=== PATIENT | male | born 1990 | race American Indian/Alaskan Native ===

== ENCOUNTER 2021-01-13 12:04 | Emergency (ER) | payer MEDICAID ==
[2021-01-13] MEDS ORDERED: Potassium Chloride 10 MEQ in Premix Bag 1 BAG IV ONE (12:48)
--- NOTE | 2021-01-13 12:49 | EDM.PDOC ---
<Hammad Manrique Chrissy - Last Filed: 01/13/21 12:57> ED HPI GENERAL MEDICAL PROBLEM - General Chief Complaint: General Stated Complaint: FROM CLINIC Time Seen by Provider: 01/13/21 12:20 Source of Information: Reports: Patient, Family History Limitations: Reports: No Limitations - History of Present Illness INITIAL COMMENTS - FREE TEXT/NARRATIVE: 30 y/o M c/o abd pn, fluid retention and fatigue x 1 month. Pt was seen at [facility] this morning and was sent to the ER. Pt was told his liver is "shot" and that he needs to go to the ER. Pt states about a month ago he developed abd pain and fluid buildup in his abd. Pt states his abd pn is sharp in nature worse on the R, constant and transitions to a numbness sensation towards the lower part of the abd. Pts fatigue has been present for about a month and does improve with rest. Pt also reports occasional CP L chest cramping in nature lasting a few minutes and nonradiating. CP occurs at rest or with activity and subsides without intervention. Reports occasional dark red stools for the last month. Hx of heavy alcohol use and quit drinking 3 weeks ago. Denies fever, chills, db, extremity pn, hemorrhoids, trauma. CBC results from clinic WBC 24.16 Red blood cell 3.53 Hemoglobin 12.4 Hematocrit 33.9 MCV 96 MCH 35.1 MCHC 36.6 RDW 65.5 Platelets 180 MPV 9.7 Neutrophils 91.4 Lymphocytes 3.3 mono 2.9 eos 0.6 Baso 0.1 imm grans 1.70 Neutros Abs 22.08 Lymph Abs 0.79 CMP BUN 31 NA 128 K 2.6 Chloride 91 CO2 22.4 Gluc 121 Creatinine 3.7 Ca 7.5 Anion Gap 14.6 Albumin 1.5 Alk Phos 357 Ast 248 ALT 68 Bilirubin 30.9 Protein tot 6.6 GFR 19 - Related Data Allergies Allergy/AdvReac Type Severity Reaction Status Date / Time No Known Allergies Allergy Verified 04/20/19 00:50 Home Meds: Home Meds . [No Known Home Meds] 04/20/19 [History] ED ROS GENERAL - Review of Systems Review Of Systems: Comprehensive ROS is negative, except as noted in HPI. ED EXAM, GENERAL - Physical Exam Exam: See Below Exam Limited By: No Limitations General Appearance: Alert, Anxious (scleral icterus) Throat/Mouth: Normal Inspection, Normal Lips, Normal Oropharynx, Normal Voice, No Airway Compromise Head: Atraumatic, Normocephalic Neck: Supple, Non-Tender Respiratory/Chest: No Respiratory Distress, Lungs Clear, Normal Breath Sounds Cardiovascular: Normal Peripheral Pulses, Regular Rate, Rhythm, No JVD GI/Abdominal: Soft, Tender, Other (tender throught with appreciable fluid wave, distended abd) (Male) Exam: Deferred Rectal (Males) Exam: Other (pt refused rectal exam) Back Exam: Normal Inspection, Full Range of Motion, Other (No CVA tenderness) Extremities: Normal Inspection, Other (except for diffuse jaundice) Neurological: Alert, Oriented Psychiatric: Anxious Skin Exam: Warm, Dry, Intact, Other (diffuse jaundice) Departure - Departure Disposition: DC/Tfer to [facility] 02 Clinical Impression: Jaundice, Increased ammonia level Ascites Qualifiers: Ascites type: due to alcoholic cirrhosis Qualified Code(s): K70.31 - Alcoholic cirrhosis of liver with ascites Acute renal failure Qualifiers: Acute renal failure type: unspecified Qualified Code(s): N17.9 - Acute kidney failure, unspecified Liver failure Qualifiers: Liver failure chronicity: acute Hepatic coma status: without hepatic coma Qualified Code(s): K72.00 - Acute and subacute hepatic failure without coma - Discharge Information Forms: Interfacility Transfer EMTALA Care Plan Goals: Discussed the patient's history, examination, lab and CT results with Dr. Healy ([facility]). Dr. Healy accepted the patient for continued mary luation and further management as an inpatient at [facility]. The patient will be transported by [facility]. <Sukhdev Dee - Last Filed: 01/13/21 18:27> #1 Interpretation EKG Date: 01/13/21 Time: 12:42 Rhythm: NSR Rate (Beats/Min): 82 [place]: Normal P-Wave: Present QRS: Normal ST-T: Normal QT: Normal Comparison: NA - No Prior EKG Course - Vital Signs Last Recorded V/S: Last Vital Signs Temp 97.6 F 01/13/21 17:52 Pulse 86 01/13/21 17:52 Resp 18 01/13/21 17:52 BP 127/55 L 01/13/21 17:52 Pulse Ox 96 01/13/21 17:52 - Orders/Labs/Meds Orders: Active Orders 24 hr Category Date Time Status CULTURE BLOOD [BC] Stat Lab 01/13/21 13:35 Received Labs: Laboratory Tests 01/13/21 01/13/21 01/13/21 Range/Units 13:35 13:35 13:35 Lactic Acid 1.9 (0.4-2.0) mmol/L Phosphorus 4.3 (2.6-4.7) mg/dL Magnesium 2.7 H (1.8-2.4) mg/dL Ammonia 35 H (11-32) umol/L Troponin I High Sens 4 (<=76) pg/mL Amylase 27 (25-115) U/L Lipase 132 (73-393) U/L Influenza Type A RNA (NEGATIVE) Influenza Type B RNA (NEGATIVE) SARS-CoV-2 RNA (CARLA) (NEGATIVE) 01/13/21 Range/Units 17:21 Lactic Acid (0.4-2.0) mmol/L Phosphorus (2.6-4.7) mg/dL Magnesium (1.8-2.4) mg/dL Ammonia (11-32) umol/L Troponin I High Sens (<=76) pg/mL Amylase (25-115) U/L Lipase (73-393) U/L Influenza Type A RNA Negative (NEGATIVE) Influenza Type B RNA Negative (NEGATIVE) SARS-CoV-2 RNA (CARLA) Negative (NEGATIVE) Meds: Medications Discontinued Medications Generic Name Dose Route Start Last Admin Trade Name Freq PRN Reason Stop Dose Admin Potassium Chloride 10 meq/ 100 mls @ 100 mls/hr 01/13/21 12:48 01/13/21 14:51 Premix IV 01/13/21 13:47 100 mls/hr ONETIME ONE Administration - Radiology Interpretation Free Text/Narrative:: [facility] [place] [facility] Final Radiology Report Call: [phone] assistance Online chat: [email or web address] Name: ARSLAN CEJA Age: 30Years M Date: 01/13/2021 SSN: -- : [id number] Study: CT ABDOMEN PELVIS WO CONT Requesting Physician: EMANUEL DALAL Images: [id number] Addl Studies: Provided Clinical History: JAUNDICE,ABD PAIN,CIRRHOSIS Contrast: Without Contrast Medium: Contrast Amount: Contrast Method: Page 1 of 2 PROCEDURE INFORMATION: Exam: CT Abdomen And Pelvis Without Contrast Exam date and time: 01/13/2021 11:25 AM Age: 30 years old Clinical indication: Abdominal pain; Additional info: Jaundice, abd pain, cirrhosis TECHNIQUE: Imaging protocol: Computed tomography of the abdomen and pelvis without contrast. Radiation optimization: All CT scans at this facility use at least one of these dose optimization techniques: automated exposure control; mA and/or kV adjustment per patient size (includes targeted exams where dose is matched to clinical indication); or iterative reconstruction. COMPARISON: No relevant prior studies available. FINDINGS: Lungs: Infiltrate and atelectasis right lung base. Atelectasis left lung base. Pleural spaces: Small right pleural effusion. Liver: Marked fatty infiltration of the liver. Hepatomegaly. Gallbladder and bile ducts: Mildly distended gallbladder. Pancreas: Peripancreatic edema suspicious for low-grade pancreatitis. Spleen: Normal. No splenomegaly. Adrenal glands: Normal. No mass. Kidneys and ureters: Normal. No hydronephrosis. Stomach and bowel: Unremarkable. No obstruction. No mucosal thickening. Appendix: No evidence of appendicitis. Intraperitoneal space: Moderate ascites. Vasculature: Unremarkable. No abdominal aortic aneurysm. Lymph nodes: Prominent portacaval lymph nodes. ARSLAN CEJA | Final Radiology Report CONFIDENTIALITY STATEMENT This report is intended only for use by the referring physician, and only in accordance with law. If you received this in error, call [phone]. Page 2 of 2 Urinary bladder: Unremarkable as visualized. Reproductive: Unremarkable as visualized. Bones/joints: Unremarkable. No acute fracture. Soft tissues: Unremarkable. IMPRESSION: 1. Mild peripancreatic soft tissue stranding could be due to low-grade pancreatitis 2. Hepatomegaly with marked fatty liver 3. Moderate ascites 4. Infiltrate and atelectasis right lung base with small right pleural effusion 5. Mildly distended gallbladder. Thank you for allowing us to participate in the care of your patient. Dictated and Authenticated by: Etta Perera MD 01/13/2021 12:07 PM Central Time ([place] & [place]) - Re-Assessments/Exams Free Text/Narrative Re-Assessment/Exam: 01/13/21 15:38 An initial call was placed to [facility] in [place] at 1228 to have the patient placed on a list for admission to their facility when a bed becomes available. A return call was placed to [facility] in [place] at 1430 regarding bed availability (should have discharged in about 1 hour). 01/13/21 17:35 Received a call from [facility] at 1707 reporting that they do not have a bed. A call was placed to [facility] at 1710 (currently no beds available). A call was then placed to [facility] at 1712. The patient was placed on a waiting list for a bed in [facility]. The patient was placed on extended ED status until a bed is available. Departure - Departure Time of Disposition: 18:25 - Discharge Information *PRESCRIPTION DRUG MONITORING PROGRAM REVIEWED*: Not Applicable *COPY OF PRESCRIPTION DRUG MONITORING REPORT IN PATIENT SANDRA: Not Applicable Sepsis Event Note (ED) - Focused Exam Vital Signs: Vital Signs Temp Pulse Resp BP Pulse Ox 01/13/21 17:52 97.6 F 86 18 127/55 L 96 01/13/21 12:24 97.8 F 85 16 124/62 99 - My Orders Last 24 Hours: My Active Orders 01/13/21 13:35 CULTURE BLOOD [BC] Stat - Assessment/Plan Last 24 Hours: My Active Orders 01/13/21 13:35 CULTURE BLOOD [BC] Stat
[2021-01-13 18:05] LABS: CORONAVIRUS COVID-19 NAA NEGATIVE (NEGATIVE)
== END 2021-01-13 18:56 ==
LOC: DL.ED 12:04
DX: K72.00 Acute and subacute hepatic failure without coma (principal); N17.9 Acute kidney failure, unspecified; K70.31 Alcoholic cirrhosis of liver with ascites; Z20.828 Contact with and (suspected) exposure to other viral communicable diseases
CPT/HCPCS: 0240U; 36415; 82140; 82150; 83605; 83690; 83735; 84100; 84484; 87040; 93005; 99285; J3480